=== PATIENT | male | born 1955 | race Caucasian/White ===

== ENCOUNTER 2016-11-06 05:22 | Inpatient (IN) | payer OTHER ==
[~2016-11-06] VITALS: Ht 177.8 cm; Wt 90.9 kg
[2016-11-06] MEDS ORDERED: CHOL400C PO (05:59)
[2016-11-06] MEDS ORDERED: CETI-237 PO (05:59)
[2016-11-06] MEDS ORDERED: ESOM20CA31 PO (05:59)
[2016-11-06 06:08] VITALS: BP 108/70
[2016-11-06] MEDS ORDERED: MORPHINE SULFATE 4 MG/ML, 1ML ONE (06:17)
[2016-11-06] MEDS ORDERED: ONDANSETRON 2MG/ML, 2ML IVPush PRN ×3 (06:30→18:00)
[2016-11-06] MEDS ORDERED: MORPHINE SULFATE 4 MG/ML, 1ML IVPush PRN (06:30)
[2016-11-06 07:50] VITALS: BP 110/71
[2016-11-06] MEDS ORDERED: morphine SULFATE 10 MG/ML, 1ML IVPush ONE (08:00)
[2016-11-06] MEDS ORDERED: SODIUM CHLORIDE FLUSH 10ML SYR IVF SCH (09:00)
[2016-11-06] MEDS ORDERED: MIDAZOLAM 1 MG/ML, 2ML ONE (10:56)
[2016-11-06] MEDS ORDERED: FENTANYL PF 100 MCG/2ML ONE (10:56)
[2016-11-06] MEDS ORDERED: BUPIVACAINE LIPOSOME/PF INFIL ONE (11:28)
[2016-11-06] MEDS ORDERED: FENTANYL PF 100 MCG/2ML IV PRN (11:30)
[2016-11-06] MEDS ORDERED: hydrALAzine 20 MG/ML, 1ML IV PRN (11:30)
[2016-11-06] MEDS ORDERED: LABETALOL 5MG/ML, 20ML IV PRN (11:30)
[2016-11-06] MEDS ORDERED: ACETAMINOPHEN 325 MG TABLET PO PRN (11:30)
[2016-11-06] MEDS ORDERED: PROMETHAZINE 25 MG/ML, 1ML IV PRN (11:30)
[2016-11-06] MEDS ORDERED: METOCLOPRAMIDE 5 MG/ML, 2ML IV PRN (11:30)
[2016-11-06] MEDS ORDERED: OXYcodone 5 MG/5 ML ORAL.SOL UDC PO PRN ×2 (11:30→14:00)
[2016-11-06] MEDS ORDERED: MEPERIDINE/PF 25MG/0.5ML IVPush PRN (11:30)
[2016-11-06] MEDS ORDERED: ROCURONIUM 10 MG/ML ONE (11:49)
[2016-11-06] MEDS ORDERED: PROPOFOL 10 MG/ML, 20ML ONE (11:49)
[2016-11-06] MEDS ORDERED: CEFOTETAN 2 GM ONE (11:49)
[2016-11-06] MEDS ORDERED: SUCCINYLCHOLINE 20 MG/ML, 10ML ONE (11:49)
[2016-11-06] MEDS ORDERED: ACETAMINOPHEN 325 MG TABLET ONE (12:35)
[2016-11-06] MEDS ORDERED: HYDROmorphone 2 MG/ML, 1ML ONE (12:35)
[2016-11-06] MEDS ORDERED: MEPERIDINE/PF 25MG/0.5ML ONE (12:35)
[2016-11-06] MEDS ORDERED: OXYcodone 5 MG/5 ML ORAL.SOL UDC ONE (12:36)
[2016-11-06] MEDS: HYDROmorphone 1 MG/ML, 1ML IV PRN ×4 (12:44→13:13)
[2016-11-06] MEDS ORDERED: ONDANSETRON 2MG/ML, 2ML IV PRN (14:00)
[2016-11-06] MEDS ORDERED: LORazepam 2 MG/ML, 1ML IV PRN (14:00)
[2016-11-06] MEDS ORDERED: CETIRIZINE 10 MG TABLET PO PRN (14:00)
[2016-11-06] MEDS ORDERED: LORazepam 1MG TABLET PO PRN (14:00)
[2016-11-06] MEDS ORDERED: ONDANSETRON 2MG/ML, 2ML ONE (17:44)
[2016-11-06 17:51] VITALS: BP 114/60
[2016-11-06 19:22] VITALS: BP 117/63
[2016-11-06] MEDS ORDERED: OXYC-302 PO (19:45)
[2016-11-06] MEDS ORDERED: CIPR500T87 PO (19:46)
[2016-11-06] MEDS ORDERED: METR500T PO (19:47)
[2016-11-07] MEDS ORDERED: PANTOPROZOLE 40MG TABLET PO SCH (07:30)
[2016-11-07] MEDS ORDERED: CHOLECALCIFEROL 400 UNITS TABLET PO SCH (09:00)
== END 2016-11-06 20:54 | disposition home or self-care (01) | DRG 395 ==
LOC: 4NOR 05:45
PROVIDERS: ADMIT Surgery; ATTEND Surgery
PROC: 0D9P30Z Drainage of Rectum with Drainage Device, Percutaneous Approach (ICD-10-PCS; principal; 2016-11-06 10:45)
DX: K61.2 Anorectal abscess (principal); Z79.899 Other long term (current) drug therapy; C44.90 Unspecified malignant neoplasm of skin, unspecified
CPT/HCPCS: 87015; 87070; 87075; 87077; 87102; 87116; 87205; 87206; C9290; J1170; J2175; J2250; J2704; J3010; J0330; J2270; S0074

== ENCOUNTER 2018-09-10 08:55 | Emergency (ER) | payer OTHER ==
[~2018-09-10] VITALS: Ht 177.8 cm; Wt 89.0 kg
[~2018-09-10 08:55] MED LIST: CETI-237 PO; CHOL400C PO; CIPR500T87 PO; ESOM20CA31 PO; METR500T PO; OXYC-302 PO
--- NOTE | 2018-09-10 09:16 | NUR ---
UP DOING CHORES AND SUDDEN ONSET DIZZINESS, OFF BALANCE, LEGS HEAVY. MD AT BEDSIDE EXAMINING PT
[2018-09-10] MEDS ORDERED: MECLIZINE CHEWABLE 25 MG TAB PO ONE (09:30)
[2018-09-10] MEDS ORDERED: MECLIZINE CHEWABLE 25 MG TAB ONE (09:34)
[2018-09-10 10:13] LABS: BASOPHILS # (AUTO) 0.03 x10^3/uL (0-0.1); BASOPHILS % (AUTO) 0 % (0-1); EOSINOPHILS # (AUTO) 0.06 x10^3/uL (0-0.4); EOSINOPHILS % (AUTO) 1 % (1-7); LYMPHOCYTES # (AUTO) 0.88 x10^3/uL (1-3.4); LYMPHOCYTES % (AUTO) 12 % (22-44); MD NO; MEAN CORPUSCULAR HEMOGLOBIN 31.9 pg (27.5-34.5); MEAN CORPUSCULAR HGB CONC 35.1 g/dL (33.2-36.2); MEAN CORPUSCULAR VOLUME 90.9 fL (81-97); MEAN PLATELET VOLUME 7.2 fL (7.4-10.4); MONOCYTES # (AUTO) 0.44 x10^3/uL (0.2-0.8); MONOCYTES % (AUTO) 6 % (2-9); NEUTROPHILS # (AUTO) 5.92 x10^3/uL (1.8-6.8); NEUTROPHILS % (AUTO) 81 % (42-75); PLATELET COUNT 159 x10^3/uL (130-400); RED CELL DISTRIBUTION WIDTH 12.5 % (9.4-14.8)
[2018-09-10 10:20] LABS: ALANINE AMINOTRANSFERASE 28 U/L (12-78); ALBUMIN 3.7 g/dL (3.4-5.0); ANION GAP 4 mmol/L (5-15); CALCIUM 8.5 mg/dL (8.5-10.1); CHLORIDE 113 mmol/L (98-107); CREATININE 1.17 mg/dL (0.7-1.3)
[2018-09-10 10:30] LABS: ALKALINE PHOSPHATASE 63 U/L (45-117); BILIRUBIN,TOTAL 0.8 mg/dL (0.2-1.0); TOTAL PROTEIN 6.8 g/dL (6.4-8.2)
[2018-09-10 11:01] VITALS: BP 118/70
--- NOTE | 2018-09-10 11:01 | NUR ---
AWAITING DISPO. CONTINUE TO MONITOR
--- NOTE | 2018-09-10 11:36 | NUR ---
STANDING AT SIDE OF BED WHILE MD RE-EVALUATING PT
== END 2018-09-10 12:14 | disposition home or self-care (01) ==
LOC: ED 09:16
DX: H81.399 Other peripheral vertigo, unspecified ear (principal); H81.10 Benign paroxysmal vertigo, unspecified ear; K21.9 Gastro-esophageal reflux disease without esophagitis
CPT/HCPCS: 36415; 80053; 84443; 85025; 93005; 99284

== ENCOUNTER 2018-12-31 12:26 | Observation (INO) | payer OTHER ==
[~2018-12-31] VITALS: Ht 177.8 cm; Wt 91.4 kg
--- NOTE | 2018-12-31 12:39 | NUR ---
CUSTOMER FACILITIES SUPERVISOR: PT TO ROOM FROM TRIAGE VIA W/C
[2018-12-31 12:50] LABS: BASOPHILS # (AUTO) 0.02 x10^3/uL (0-0.1); BASOPHILS % (AUTO) 0 % (0-1); EOSINOPHILS # (AUTO) 0.09 x10^3/uL (0-0.4); EOSINOPHILS % (AUTO) 1 % (1-7); LYMPHOCYTES # (AUTO) 1.36 x10^3/uL (1-3.4); LYMPHOCYTES % (AUTO) 21 % (22-44); MD NO; MEAN CORPUSCULAR HEMOGLOBIN 31.6 pg (27.5-34.5); MEAN CORPUSCULAR HGB CONC 34.2 g/dL (33.2-36.2); MEAN CORPUSCULAR VOLUME 92.5 fL (81-97); MEAN PLATELET VOLUME 6.9 fL (7.4-10.4); MONOCYTES # (AUTO) 0.49 x10^3/uL (0.2-0.8); MONOCYTES % (AUTO) 8 % (2-9); NEUTROPHILS # (AUTO) 4.42 x10^3/uL (1.8-6.8); NEUTROPHILS % (AUTO) 69 % (42-75); PLATELET COUNT 162 x10^3/uL (130-400); RED BLOOD COUNT 5.27 x10^6/uL (4.38-5.82); RED CELL DISTRIBUTION WIDTH 13.5 % (9.4-14.8)
--- NOTE | 2018-12-31 12:51 | NUR ---
PT A&OX4, RESP EVEN & UNLABORED, SPEECH CLEAR, SKIN WNL. CURRENTLY PAIN FREE. SPOUSE & DAUGHTER IN ROOM. EXPERIENCED SOB & CHEST TIGHTNESS THAT HAS INCREASED OVER THIS PAST WEEK. NO PAIN MEDS TAKEN. DENIES CARDIAC HX, RECENT URI, VOMITING. C/O NAUSEA - DRY HEAVES FOR A FEW WEEKS, DIARRHEA TODAY - MULTIPLE SOFT STOOLS TODAY. WAS IN [place] IN SEPT[place]. HAS NOT TAKEN ANTIBIOTICS RECENTLY.
[2018-12-31] MEDS ORDERED: LANS30CA PO (12:57)
[2018-12-31] MEDS ORDERED: MULTIVITAMIN (12:57)
[2018-12-31] MEDS ORDERED: ASPIRIN 81 MG TABLET CHEW PO ONE (13:00)
[2018-12-31] MEDS ORDERED: SODIUM CHLORIDE FLUSH 10ML SYR IVF ONE (13:00)
[2018-12-31 13:04] LABS: ALANINE AMINOTRANSFERASE 33 U/L (12-78); ALBUMIN 4.2 g/dL (3.4-5.0); ANION GAP 4 mmol/L (5-15); CALCIUM 9.2 mg/dL (8.5-10.1); CHLORIDE 108 mmol/L (98-107); CREATININE 1.31 mg/dL (0.7-1.3)
[2018-12-31 13:08] LABS: ALKALINE PHOSPHATASE 75 U/L (45-117); TOTAL PROTEIN 7.4 g/dL (6.4-8.2); TROPONIN I < 0.015 ng/mL (0.000-0.045)
[2018-12-31] MEDS ORDERED: ASPIRIN 81 MG TABLET CHEW ONE (13:08)
--- NOTE | 2018-12-31 13:21 | NUR ---
Pt sitting up in bed, joking with and daughter who are at the bedside. NAD noted at this time. Pt side rail up. Pt medicated per emar. MCCOLLUM at bedside for assessment.
--- NOTE | 2018-12-31 13:59 | NUR ---
IV LOCK INITIATED. PT RESTING COMFORTABLY ON BED, MONITORING CONTINUING.
--- NOTE | 2018-12-31 14:08 | NUR ---
TO CTA PER TIARA
[2018-12-31] MEDS ORDERED: OMNIPAQUE 350 MG/ML, 100ML BOTTLE ONE (14:26)
--- NOTE | 2018-12-31 14:37 | NUR ---
PT REPORT TO ERIBERTO DUVALL FOR ROOM 510-1
[2018-12-31 15:07] VITALS: BP 135/84
[2018-12-31] MEDS ORDERED: MULT-658 PO (15:29)
[2018-12-31] MEDS ORDERED: POLYETHYLENE GLYCOL 17 GM PACKET PO PRN (15:30)
[2018-12-31] MEDS ORDERED: ENALAPRILAT 1.25 MG/ML, 2ML IVPush PRN (15:30)
[2018-12-31] MEDS ORDERED: ONDANSETRON 2MG/ML, 2ML IVPush PRN (15:30)
[2018-12-31] MEDS ORDERED: CETIRIZINE 10 MG TABLET PO PRN (15:30)
[2018-12-31] MEDS ORDERED: ACETAMINOPHEN 325 MG TABLET PO PRN (15:30)
[2018-12-31] MEDS ORDERED: LABETALOL 5MG/ML, 20ML IVPush PRN (15:30)
[2018-12-31] MEDS ORDERED: ONDANSETRON ODT 4 MG PO PRN (15:30)
[2018-12-31] MEDS ORDERED: DOCUSATE 100 MG CAPSULE PO PRN (15:30)
[2018-12-31] MEDS ORDERED: BISACODYL 10 MG SUPP PR PRN (15:30)
[2018-12-31] MEDS: SODIUM CHLORIDE 0.9% 1,000 ML IV SCH (15:51)
[2018-12-31 16:08] LABS: TROPONIN I < 0.015 ng/mL (0.000-0.045)
[2018-12-31 19:17] VITALS: BP 122/73
[2018-12-31 21:30] LABS: TROPONIN I < 0.015 ng/mL (0.000-0.045)
[2019-01-01 01:11] VITALS: BP 128/67
[2019-01-01] MEDS: SODIUM CHLORIDE 0.9% 1,000 ML IV SCH (05:13)
[2019-01-01 05:34] LABS: BASOPHILS # (AUTO) 0.02 x10^3/uL (0-0.1); BASOPHILS % (AUTO) 0 % (0-1); EOSINOPHILS # (AUTO) 0.08 x10^3/uL (0-0.4); EOSINOPHILS % (AUTO) 2 % (1-7); LYMPHOCYTES # (AUTO) 1.37 x10^3/uL (1-3.4); LYMPHOCYTES % (AUTO) 26 % (22-44); MD NO; MEAN CORPUSCULAR HGB CONC 33.7 g/dL (33.2-36.2); MEAN CORPUSCULAR VOLUME 92.1 fL (81-97); MEAN PLATELET VOLUME 6.8 fL (7.4-10.4); MONOCYTES # (AUTO) 0.41 x10^3/uL (0.2-0.8); MONOCYTES % (AUTO) 8 % (2-9); NEUTROPHILS # (AUTO) 3.32 x10^3/uL (1.8-6.8); NEUTROPHILS % (AUTO) 64 % (42-75); PLATELET COUNT 132 x10^3/uL (130-400); RED BLOOD COUNT 4.88 x10^6/uL (4.38-5.82); RED CELL DISTRIBUTION WIDTH 13.4 % (9.4-14.8)
[2019-01-01 05:43] LABS: CHLORIDE 110 mmol/L (98-107)
[2019-01-01 06:00] LABS: ANION GAP 7 mmol/L (5-15); CALCIUM 8.3 mg/dL (8.5-10.1); CREATININE 1.11 mg/dL (0.7-1.3)
[2019-01-01] MEDS ORDERED: ASPIRIN 325 MG TABLET EC PO SCH (06:00)
[2019-01-01 07:44] VITALS: BP 116/70
[2019-01-01] MEDS ORDERED: MULTIVITAMIN 1 TABLET PO SCH (09:00)
[2019-01-01] MEDS ORDERED: PANTOPROZOLE 40MG TABLET PO SCH (09:00)
[2019-01-01 12:50] VITALS: BP 131/80
== END 2019-01-01 17:06 | disposition home or self-care (01) ==
LOC: ED 14:33 → 5SO 15:05 → ED 15:30 → 5SO 15:30 → INTOOBSV 15:30
PROVIDERS: ADMIT Internal Medicine; ATTEND Internal Medicine
DX: R07.89 Other chest pain (principal); R06.00 Dyspnea, unspecified; R19.7 Diarrhea, unspecified; Z85.828 Personal history of other malignant neoplasm of skin; Z79.899 Other long term (current) drug therapy
CPT/HCPCS: 36415; 71045; 71275; 78452; 80048; 80053; 83690; 83735; 83880; 84100; 84436; 84443; 84484; 85025; 93005; 93017; 93306; 99284; A9502; C9898; G0378; J7030; Q9967; 99285

== ENCOUNTER 2019-01-20 14:17 | Emergency (ER) | payer OTHER ==
[~2019-01-20] VITALS: Ht 177.8 cm; Wt 90.4 kg
[2019-01-20 16:37] VITALS: BP 148/74
== END 2019-01-20 16:39 | disposition home or self-care (01) ==
LOC: ED 16:07
DX: R06.00 Dyspnea, unspecified (principal); K21.9 Gastro-esophageal reflux disease without esophagitis
CPT/HCPCS: 36415; 71046; 80053; 84484; 85025; 93005; 99284

== ENCOUNTER 2019-01-30 09:29 | Outpatient (CLI) | payer OTHER ==
[~2019-01-30 09:29] MED LIST changes: +LANS30CA PO; +MULT-658 PO; +MULTIVITAMIN
== END 2019-01-30 23:59 | disposition home or self-care (01) ==
LOC: RAD 09:29
PROVIDERS: ATTEND Family Medicine
DX: K22.2 Esophageal obstruction (principal); K22.8 Other specified diseases of esophagus; K44.9 Diaphragmatic hernia without obstruction or gangrene; K21.9 Gastro-esophageal reflux disease without esophagitis; M81.8 Other osteoporosis without current pathological fracture; F41.9 Anxiety disorder, unspecified; R07.2 Precordial pain; R00.2 Palpitations; Z85.828 Personal history of other malignant neoplasm of skin
CPT/HCPCS: 74241

== ENCOUNTER → 2020-07-23 | Outpatient (CLI) | payer OTHER ==
[~2020-07-23] MED LIST changes: -OXYC-302 PO; +OXYC1TAB14 PO
== END | disposition home or self-care (01) ==
LOC: CFH 15:44
PROVIDERS: ATTEND Family Medicine
DX: I35.8 Other nonrheumatic aortic valve disorders (principal); R06.02 Shortness of breath
CPT/HCPCS: 93306

== ENCOUNTER 2020-08-26 08:55 | Emergency (ER) | payer OTHER ==
[~2020-08-26] VITALS: Ht 177.8 cm; Wt 92.2 kg
--- NOTE | 2020-08-26 09:26 | NUR ---
ERP AT BEDSIDE. PT STATES S/S HE WAS EXPERIENCING EARLIER HAVE PASSED.
[2020-08-26 09:48] VITALS: BP 145/79
--- NOTE | 2020-08-26 10:02 | NUR ---
lab at bedside
[2020-08-26 10:17] LABS: BASOPHILS % (AUTO) 0 % (0-1); EOSINOPHILS % (AUTO) 1 % (1-7); LYMPHOCYTES % (AUTO) 15 % (22-44); MEAN CORPUSCULAR HGB CONC 34.6 g/dL (33.2-36.2); MEAN PLATELET VOLUME 6.8 fL (7.4-10.4); MONOCYTES % (AUTO) 9 % (2-9); NEUTROPHILS % (AUTO) 76 % (42-75); PLATELET COUNT 150 x10^3/uL (130-400); RED BLOOD COUNT 4.72 x10^6/uL (4.38-5.82); RED CELL DISTRIBUTION WIDTH 13.5 % (9.4-14.8)
[2020-08-26 10:18] LABS: MD NO
[2020-08-26 10:25] LABS: ALANINE AMINOTRANSFERASE 30 U/L (12-78); ALBUMIN 3.8 g/dL (3.4-5.0); ANION GAP 7 mmol/L (5-15); CALCIUM 8.9 mg/dL (8.5-10.1); CHLORIDE 108 mmol/L (98-107); CREATININE 1.06 mg/dL (0.7-1.3)
[2020-08-26 10:29] LABS: ALKALINE PHOSPHATASE 62 U/L (45-117); BILIRUBIN,TOTAL 0.6 mg/dL (0.2-1.0); TOTAL PROTEIN 6.5 g/dL (6.4-8.2); TROPONIN I < 0.015 ng/mL (0.000-0.045)
--- NOTE | 2020-08-26 10:42 | NUR ---
pt ambulates to bathroom with no complicaitons. denies dizziness
== END 2020-08-26 11:13 | disposition home or self-care (01) ==
LOC: ED 10:21
DX: R55 Syncope and collapse (principal); R00.2 Palpitations; R42 Dizziness and giddiness; K21.9 Gastro-esophageal reflux disease without esophagitis
CPT/HCPCS: 36415; 80053; 83735; 84484; 85025; 93005; 99284

== ENCOUNTER 2020-10-23 23:24 | Emergency (ER) | payer OTHER ==
[~2020-10-23] VITALS: Ht 177.8 cm; Wt 90.2 kg
[2020-10-24] MEDS ORDERED: OXYcodone/APAP 7.5/325MG TABLET ONE (00:23)
[2020-10-24 00:26] VITALS: BP 119/78
[2020-10-24] MEDS ORDERED: OXYcodone/APAP 7.5/325MG TABLET PO ONE (00:30)
[2020-10-24] MEDS ORDERED: LIDOCAINE-MPF 1%, 5ML INFIL ONE (01:00)
[2020-10-24] MEDS ORDERED: LIDOCAINE-MPF 1%, 5ML ONE (01:00)
--- NOTE | 2020-10-24 01:07 | NUR ---
ERP AT BEDSIDE FOR I&D
[2020-10-24] MEDS ORDERED: SULFAMETH./TRIMETHOPRIM DS 800MG/160MG TABLET ONE (01:49)
[2020-10-24] MEDS ORDERED: SULFAMETH./TRIMETHOPRIM DS 800MG/160MG TABLET PO ONE (02:00)
== END 2020-10-24 02:12 | disposition home or self-care (01) ==
LOC: ED 10-24 00:05
DX: K61.1 Rectal abscess (principal); K21.9 Gastro-esophageal reflux disease without esophagitis
CPT/HCPCS: 46040; 46050; 87070; 87077; 87147; 87205; 99284

== ENCOUNTER 2020-12-04 17:57 | Inpatient (IN) | payer OTHER ==
[~2020-12-04] VITALS: Ht 177.8 cm; Wt 91.7 kg
[2020-12-04 13:54] VITALS: BP 114/75
[2020-12-04] MEDS ORDERED: SODIUM CHLORIDE 0.9% 1,000 ML IV ONE (20:00)
[2020-12-04] MEDS ORDERED: ONDANSETRON 2MG/ML, 2ML IVPush ONE (20:00)
[2020-12-04] MEDS ORDERED: SODIUM CHLORIDE FLUSH 10ML SYR IVF ONE ×2 (20:00→23:00)
--- NOTE | 2020-12-04 20:09 | NUR ---
MRI destination coordinator, called [id number]. Tech en route. awaiting screening form
[2020-12-04] MEDS ORDERED: ONDANSETRON 2MG/ML, 2ML ONE (20:12)
[2020-12-04] MEDS ORDERED: MORPHINE SULFATE 4 MG/ML, 1ML ONE ×2 (20:12→21:30)
[2020-12-04] MEDS: MORPHINE SULFATE 4 MG/ML, 1ML IVPush PRN ×2 (20:21→21:36)
[2020-12-04] MEDS ORDERED: GADOTERATE 10 MMOL/20ML SYR ONE (20:41)
[2020-12-04 21:18] LABS: BASOPHILS % (AUTO) 0 % (0-1); EOSINOPHILS % (AUTO) 1 % (1-7); LYMPHOCYTES % (AUTO) 11 % (22-44); MEAN CORPUSCULAR HEMOGLOBIN 31.7 pg (27.5-34.5); MEAN PLATELET VOLUME 6.9 fL (7.4-10.4); MONOCYTES % (AUTO) 8 % (2-9); NEUTROPHILS % (AUTO) 80 % (42-75); PLATELET COUNT 149 x10^3/uL (130-400); RED BLOOD COUNT 4.74 x10^6/uL (4.38-5.82); RED CELL DISTRIBUTION WIDTH 14.5 % (9.4-14.8)
--- NOTE | 2020-12-04 21:27 | NUR ---
pt back from mri, rest of labs drawn
[2020-12-04 21:31] LABS: ALANINE AMINOTRANSFERASE 27 U/L (12-78); ALBUMIN 3.5 g/dL (3.4-5.0); ANION GAP 7 mmol/L (5-15); CALCIUM 9.4 mg/dL (8.5-10.1); CHLORIDE 104 mmol/L (98-107); CREATININE 1.09 mg/dL (0.7-1.3)
[2020-12-04 21:39] LABS: ALKALINE PHOSPHATASE 74 U/L (45-117); BILIRUBIN,TOTAL 0.6 mg/dL (0.2-1.0); TOTAL PROTEIN 7.3 g/dL (6.4-8.2)
[2020-12-04] MEDS ORDERED: PIPERACILLIN/TAZO 3.375 GM in DEXTROSE 5% 50 ML IVPB ONE (23:00)
[2020-12-04] MEDS ORDERED: VANCOMYCIN PER PHARMACY MC ONE (23:00)
--- NOTE | 2020-12-04 23:24 | NUR ---
ABX AFTER BLOOD CULTURES
[2020-12-04] MEDS ORDERED: VANCOMYCIN 1,800 MG in SODIUM CHLORIDE 0.9% 250 ML IV ONE (23:30)
[2020-12-04] MEDS ORDERED: POLYETHYLENE GLYCOL 17 GM PACKET PO PRN (23:30)
[2020-12-04] MEDS ORDERED: morphine SULFATE 10 MG/ML, 1ML IVPush PRN (23:30)
[2020-12-04] MEDS ORDERED: CETIRIZINE 10 MG TABLET PO PRN (23:30)
[2020-12-04] MEDS ORDERED: ONDANSETRON ODT 4 MG PO PRN (23:30)
[2020-12-04] MEDS ORDERED: BISACODYL 10 MG SUPP PR PRN (23:30)
[2020-12-04] MEDS ORDERED: VANCOMYCIN PER PHARMACY MC PRN (23:30)
[2020-12-04] MEDS ORDERED: ACETAMINOPHEN 325 MG TABLET PO PRN (23:30)
[2020-12-05 00:24] VITALS: BP 118/72
[2020-12-05] MEDS ORDERED: PHARMACOKINETIC MONITORING MC PRN (00:30)
[2020-12-05] MEDS ORDERED: ASPI-963 PO (00:44)
[2020-12-05] MEDS: SODIUM CHLORIDE FLUSH 10ML SYR IVF SCH ×3 (01:24→20:40)
[2020-12-05] MEDS: OXYcodone/APAP 5/325MG TABLET PO PRN ×4 (01:24→23:29)
[2020-12-05 05:12] LABS: BASOPHILS % (AUTO) 0 % (0-1); EOSINOPHILS % (AUTO) 1 % (1-7); LYMPHOCYTES % (AUTO) 13 % (22-44); MEAN CORPUSCULAR HEMOGLOBIN 31.9 pg (27.5-34.5); MEAN CORPUSCULAR HGB CONC 35.6 g/dL (33.2-36.2); MEAN PLATELET VOLUME 6.9 fL (7.4-10.4); MONOCYTES % (AUTO) 10 % (2-9); NEUTROPHILS % (AUTO) 76 % (42-75); PLATELET COUNT 134 x10^3/uL (130-400); RED BLOOD COUNT 4.34 x10^6/uL (4.38-5.82); RED CELL DISTRIBUTION WIDTH 14.7 % (9.4-14.8)
[2020-12-05] MEDS: PIPERACILLIN/TAZO 3.375 GM in DEXTROSE 5% 50 ML IV SCH ×4 (05:12→23:44)
[2020-12-05] MEDS: PANTOPRAZOLE 40MG TABLET PO SCH (05:13)
[2020-12-05 05:20] LABS: ANION GAP 5 mmol/L (5-15); CALCIUM 8.3 mg/dL (8.5-10.1); CHLORIDE 105 mmol/L (98-107); CREATININE 1.17 mg/dL (0.7-1.3)
[2020-12-05] MEDS: MULTIVITAMIN 1 TABLET PO SCH (07:19)
[2020-12-05] MEDS: SENNA/DOCUSATE TABLET PO SCH (07:19)
[2020-12-05 07:32] VITALS: BP 105/69
[2020-12-05] MEDS ORDERED: LIDOCAINE-MPF 1%, 5ML ONE (13:01)
[2020-12-05 13:35] VITALS: BP 114/75
[2020-12-05] MEDS: VANCOMYCIN 1,800 MG in SODIUM CHLORIDE 0.9% 250 ML IV SCH (15:30)
[2020-12-05] MEDS: ENOXAPARIN 40 MG/0.4 ML SQ SCH (16:59)
[2020-12-05 19:08] VITALS: BP 105/68
[2020-12-06 00:03] VITALS: BP 106/63
[2020-12-06] MEDS: PANTOPRAZOLE 40MG TABLET PO SCH (05:45)
[2020-12-06] MEDS: PIPERACILLIN/TAZO 3.375 GM in DEXTROSE 5% 50 ML IV SCH ×2 (05:45→12:15)
[2020-12-06 05:55] LABS: BASOPHILS % (AUTO) 1 % (0-1); EOSINOPHILS % (AUTO) 1 % (1-7); LYMPHOCYTES % (AUTO) 14 % (22-44); MEAN CORPUSCULAR HEMOGLOBIN 31.7 pg (27.5-34.5); MEAN CORPUSCULAR HGB CONC 35.2 g/dL (33.2-36.2); MEAN PLATELET VOLUME 6.5 fL (7.4-10.4); MONOCYTES % (AUTO) 10 % (2-9); NEUTROPHILS % (AUTO) 75 % (42-75); PLATELET COUNT 146 x10^3/uL (130-400); RED BLOOD COUNT 4.62 x10^6/uL (4.38-5.82); RED CELL DISTRIBUTION WIDTH 14.3 % (9.4-14.8)
[2020-12-06 06:53] VITALS: BP 114/75
[2020-12-06] MEDS: MULTIVITAMIN 1 TABLET PO SCH (07:47)
[2020-12-06] MEDS: OXYcodone/APAP 5/325MG TABLET PO PRN (07:47)
[2020-12-06] MEDS: ASPIRIN 81 MG TABLET CHEW PO SCH (07:47)
[2020-12-06] MEDS: SENNA/DOCUSATE TABLET PO SCH (07:48)
[2020-12-06] MEDS: SODIUM CHLORIDE FLUSH 10ML SYR IVF SCH ×2 (07:48→21:11)
[2020-12-06] MEDS: VANCOMYCIN 1,800 MG in SODIUM CHLORIDE 0.9% 250 ML IV SCH (10:16)
[2020-12-06 12:51] VITALS: BP 99/65
[2020-12-06] MEDS: ENOXAPARIN 40 MG/0.4 ML SQ SCH (16:23)
[2020-12-06 19:51] VITALS: BP 115/73
[2020-12-07 00:14] VITALS: BP 110/60
[2020-12-07] MEDS: VANCOMYCIN 1,800 MG in SODIUM CHLORIDE 0.9% 250 ML IV SCH (03:17)
[2020-12-07] MEDS: OXYcodone/APAP 5/325MG TABLET PO PRN (04:02)
[2020-12-07] MEDS: PANTOPRAZOLE 40MG TABLET PO SCH (05:16)
[2020-12-07 05:56] LABS: BASOPHILS % (AUTO) 0 % (0-1); EOSINOPHILS % (AUTO) 1 % (1-7); LYMPHOCYTES % (AUTO) 18 % (22-44); MEAN CORPUSCULAR HEMOGLOBIN 30.9 pg (27.5-34.5); MEAN CORPUSCULAR HGB CONC 34.4 g/dL (33.2-36.2); MEAN PLATELET VOLUME 6.7 fL (7.4-10.4); MONOCYTES % (AUTO) 11 % (2-9); NEUTROPHILS % (AUTO) 70 % (42-75); PLATELET COUNT 159 x10^3/uL (130-400); RED BLOOD COUNT 4.53 x10^6/uL (4.38-5.82); RED CELL DISTRIBUTION WIDTH 14.4 % (9.4-14.8)
[2020-12-07 05:58] LABS: ANION GAP 8 mmol/L (5-15); CALCIUM 9.1 mg/dL (8.5-10.1); CHLORIDE 108 mmol/L (98-107); CREATININE 1.01 mg/dL (0.7-1.3)
[2020-12-07 08:00] VITALS: BP 108/69
[2020-12-07] MEDS: SODIUM CHLORIDE FLUSH 10ML SYR IVF SCH (09:00)
[2020-12-07] MEDS: ASPIRIN 81 MG TABLET CHEW PO SCH (09:14)
[2020-12-07] MEDS: MULTIVITAMIN 1 TABLET PO SCH (09:14)
[2020-12-07] MEDS: SENNA/DOCUSATE TABLET PO SCH (09:14)
[2020-12-07] MEDS ORDERED: CEPHALEXIN 500 MG CAPSULE PO SCH (09:30)
[2020-12-07] MEDS ORDERED: AMOX1TAB12 PO (10:14)
[2020-12-07] MEDS ORDERED: AMOXICILLIN/CLAV 875-125MG TABLET PO SCH (10:30)
== END 2020-12-07 11:25 | disposition home or self-care (01) | DRG 603 ==
LOC: ED 22:02 → EDIP 23:23 → 3N 12-05 00:11
PROVIDERS: ADMIT Family Medicine; ATTEND Family Medicine
PROC: 0J973ZZ Drainage of Back Subcutaneous Tissue and Fascia, Percutaneous Approach (ICD-10-PCS; principal; 2020-12-05)
DX: L03.312 Cellulitis of back [any part except buttock and flank] (principal); L02.212 Cutaneous abscess of back [any part, except buttock and flank]; B95.61 Methicillin susceptible Staphylococcus aureus infection as the cause of diseases classified elsewhere; I49.3 Ventricular premature depolarization; M19.90 Unspecified osteoarthritis, unspecified site; M51.26 Other intervertebral disc displacement, lumbar region; Z20.822 Contact with and (suspected) exposure to COVID-19; Z79.82 Long term (current) use of aspirin; Z82.3 Family history of stroke; Z85.828 Personal history of other malignant neoplasm of skin; Z86.73 Personal history of transient ischemic attack (TIA), and cerebral infarction without residual deficits; K21.9 Gastro-esophageal reflux disease without esophagitis
CPT/HCPCS: 10030; 36415; 72158; 76942; 80048; 80053; 83605; 84145; 85025; 85651; 86140; 87040; 87070; 87075; 87077; 87186; 87205; 87635; 96374; 96375; 96376; 99285; G0378; J1650; J2405; J2543; J3370; Q0162; A9575; J2270; J7030; J7050

== ENCOUNTER 2020-12-14 23:48 | Emergency (ER) | payer OTHER ==
[~2020-12-14] VITALS: Ht 177.8 cm; Wt 88.5 kg
[~2020-12-14 23:48] MED LIST changes: +AMOX1TAB12 PO; +ASPI-963 PO
--- NOTE | 2020-12-15 | NUR ---
PT AMBULATED STEADILY TO ROOM FROM TRIAGE. NAD NOTED
--- NOTE | 2020-12-15 00:27 | NUR ---
FIRST CONTACT W PATIENT. PT SITTING UP IN JASON MENJIVAR NOTED. PT REPORTS ADMITTED TO [facility] FOR PERISPINAL ABSCESS, DC'D LAST THURSDAY 12/07 AFTER SURGICAL I&D AND ABX. DC'D ON AUGMENTIN AND WAS TOLD TO RETURN TO ED W WORSENING S/S. PT REPORTS TODAY THERE WAS AN INCREASE IN PAIN AND DRAINAGE TRIGGERING HIS ED VISIT. DENIES NAUSEA/VOMITING/SADDLE PARESTHESIA/FEVER. BP/SPO2 MONITORING IN PLACE. IV ESTABLISHED, LABS AND BC X1 DRAWN.
[2020-12-15] MEDS ORDERED: KETOROLAC 30 MG/1 ML IVPush ONE (00:30)
[2020-12-15] MEDS ORDERED: SODIUM CHLORIDE FLUSH 10ML SYR IVF ONE (00:30)
[2020-12-15] MEDS ORDERED: OXYcodone/APAP 5/325MG TABLET PO ONE ×2 (00:30→05:30)
[2020-12-15] MEDS ORDERED: KETOROLAC 30 MG/1 ML ONE (00:39)
[2020-12-15] MEDS ORDERED: OXYcodone/APAP 5/325MG TABLET ONE ×2 (00:40→05:05)
[2020-12-15 00:49] LABS: BASOPHILS % (AUTO) 0 % (0-1); EOSINOPHILS % (AUTO) 1 % (1-7); LYMPHOCYTES % (AUTO) 22 % (22-44); MEAN CORPUSCULAR HEMOGLOBIN 31.4 pg (27.5-34.5); MEAN CORPUSCULAR HGB CONC 35.2 g/dL (33.2-36.2); MEAN PLATELET VOLUME 6.6 fL (7.4-10.4); MONOCYTES % (AUTO) 7 % (2-9); NEUTROPHILS % (AUTO) 70 % (42-75); PLATELET COUNT 252 x10^3/uL (130-400); RED BLOOD COUNT 4.67 x10^6/uL (4.38-5.82); RED CELL DISTRIBUTION WIDTH 14.3 % (9.4-14.8)
--- NOTE | 2020-12-15 01:00 | NUR ---
PT RESTING IN GURNEY W EYES CLOSED. EVEN/REGULAR RESPIRATIONS NOTED. VSS. AWAITING CT
[2020-12-15 01:01] LABS: ALBUMIN 3.6 g/dL (3.4-5.0); ANION GAP 7 mmol/L (5-15); CALCIUM 8.4 mg/dL (8.5-10.1); CHLORIDE 107 mmol/L (98-107); CREATININE 1.14 mg/dL (0.7-1.3)
[2020-12-15] MEDS ORDERED: OMNIPAQUE 350 MG/ML, 100ML BOTTLE ONE (01:50)
--- NOTE | 2020-12-15 03:19 | NUR ---
RECEIVED REPORT FROM ERIBERTO SUAREZ, PT UP TO BATHROOM WITH STEADY GAIT. PT RESTING COMFORTABLY IN BED, DENIES NEEDS AT THIS TIME.
--- NOTE | 2020-12-15 03:22 | NUR ---
REPORT TO ERIBERTO MORENO
[2020-12-15] MEDS ORDERED: PROPOFOL 10 MG/ML, 20ML ONE ×2 (03:27→03:39)
[2020-12-15] MEDS ORDERED: LIDOCAINE-MPF 1%, 5ML ONE (03:27)
[2020-12-15] MEDS ORDERED: CLINDAMYCIN PMX 600MG/50ML 50 ML ONE (03:27)
[2020-12-15] MEDS ORDERED: LIDOCAINE 1%, 10ML INFIL ONE (03:30)
[2020-12-15] MEDS ORDERED: CLINDAMYCIN PMX 600MG/50ML 50 ML IV ONE (03:30)
[2020-12-15] MEDS ORDERED: PROPOFOL 10 MG/ML, 20ML IVPush ONE (03:30)
--- NOTE | 2020-12-15 04:10 | NUR ---
PROCEDURAL SEDATION SET UP WITH SUCTION, 1 L OF NS RUNNING, AND CONTINUOUS MONITORING. PT SIGNED CONSENT. PT RESTING COMFORTABLY ON GURNEY
--- NOTE | 2020-12-15 04:24 | NUR ---
I&D PROCEDURE STARTED, SEE PROCEDURAL PACKET
[2020-12-15] MEDS ORDERED: morphine SULFATE 10 MG/ML, 1ML ONE (05:05)
--- NOTE | 2020-12-15 05:20 | NUR ---
PT FULLY A&OX4, PT REQUESTING PAIN MEDICATIONS, MEDICATION GIVEN. PT RESTING COMFORTABLY ON GURNEY, DENIES NEEDS AT THIS TIME.
[2020-12-15] MEDS ORDERED: morphine SULFATE 10 MG/ML, 1ML IVPush ONE (05:30)
--- NOTE | 2020-12-15 06:40 | NUR ---
Patient given discharge instructions and they have confirmed that they understand the instructions. Patient ambulatory with steady gait.
[2020-12-15 07:00] VITALS: BP 108/60
== END 2020-12-15 07:04 | disposition home or self-care (01) ==
LOC: ED 12-15 05:33
DX: L02.212 Cutaneous abscess of back [any part, except buttock and flank] (principal); L03.312 Cellulitis of back [any part except buttock and flank]
CPT/HCPCS: 10060; 36415; 72132; 80048; 82040; 85025; 87040; 87070; 87077; 87186; 87205; 96365; 96375; 99152; 99285; J1885; J2270; Q9967

== ENCOUNTER 2020-12-17 07:28 | Emergency (ER) | payer OTHER ==
[~2020-12-17] VITALS: Ht 177.8 cm; Wt 88.1 kg
--- NOTE | 2020-12-17 07:52 | NUR ---
Lower back wound check to remove packing. Taking abx as prescribed. pt to room with steady gait. postioned to comfort. attached to monitors. nadn. vss. Alfonso AGUILAR at bedside for redressing and repacking.
[2020-12-17 08:14] VITALS: BP 134/78
--- NOTE | 2020-12-17 08:15 | NUR ---
Patient given discharge instructions and they have confirmed that they understand the instructions. Patient ambulatory with steady gait. NAD, all questions answered appropriately, denies additional needs at this time. No personal belongings left in room after discharge.
== END 2020-12-17 08:16 | disposition home or self-care (01) ==
LOC: ED 07:48
DX: L02.212 Cutaneous abscess of back [any part, except buttock and flank] (principal); K21.9 Gastro-esophageal reflux disease without esophagitis
CPT/HCPCS: 99281

== ENCOUNTER 2020-12-24 07:58 | Outpatient (CLI) | payer OTHER | END 2020-12-24 23:59 | disposition home or self-care (01) | LOC: WOUND 07:58 | PROVIDERS: ATTEND Internal Medicine Infectious Disease | DX: T81.89XA Other complications of procedures, not elsewhere classified, initial encounter (principal); L02.212 Cutaneous abscess of back [any part, except buttock and flank]; K21.9 Gastro-esophageal reflux disease without esophagitis; M19.90 Unspecified osteoarthritis, unspecified site; Z79.82 Long term (current) use of aspirin; Z96.651 Presence of right artificial knee joint; Z86.73 Personal history of transient ischemic attack (TIA), and cerebral infarction without residual deficits; Z20.822 Contact with and (suspected) exposure to COVID-19; Z85.828 Personal history of other malignant neoplasm of skin; Y92.238 Other place in hospital as the place of occurrence of the external cause; Y83.8 Other surgical procedures as the cause of abnormal reaction of the patient, or of later complication, without mention of misadventure at the time of the procedure | CPT/HCPCS: 99215 ==

== ENCOUNTER → 2020-12-31 | Outpatient (CLI) | payer OTHER | END | disposition home or self-care (01) | LOC: WOUND 07:57 | PROVIDERS: ATTEND Nurse Practitioner Family | DX: T81.89XD Other complications of procedures, not elsewhere classified, subsequent encounter (principal); L02.212 Cutaneous abscess of back [any part, except buttock and flank]; K21.9 Gastro-esophageal reflux disease without esophagitis; M19.90 Unspecified osteoarthritis, unspecified site; Z79.82 Long term (current) use of aspirin; Z96.651 Presence of right artificial knee joint; Z86.73 Personal history of transient ischemic attack (TIA), and cerebral infarction without residual deficits; Z20.822 Contact with and (suspected) exposure to COVID-19; Z85.828 Personal history of other malignant neoplasm of skin; Y83.8 Other surgical procedures as the cause of abnormal reaction of the patient, or of later complication, without mention of misadventure at the time of the procedure | CPT/HCPCS: 99214 ==

== ENCOUNTER → 2021-01-07 | Outpatient (CLI) | payer OTHER | END | disposition home or self-care (01) | LOC: WOUND 07:54 | PROVIDERS: ATTEND Nurse Practitioner Family | DX: T81.89XD Other complications of procedures, not elsewhere classified, subsequent encounter (principal); L02.212 Cutaneous abscess of back [any part, except buttock and flank]; K21.9 Gastro-esophageal reflux disease without esophagitis; M19.90 Unspecified osteoarthritis, unspecified site; Z79.82 Long term (current) use of aspirin; Z96.651 Presence of right artificial knee joint; Z86.73 Personal history of transient ischemic attack (TIA), and cerebral infarction without residual deficits; Z20.822 Contact with and (suspected) exposure to COVID-19; Z85.828 Personal history of other malignant neoplasm of skin; Y83.8 Other surgical procedures as the cause of abnormal reaction of the patient, or of later complication, without mention of misadventure at the time of the procedure | CPT/HCPCS: 99213 ==

== ENCOUNTER → 2021-01-14 | Outpatient (CLI) | payer OTHER | END | disposition home or self-care (01) | LOC: WOUND 07:54 | PROVIDERS: ATTEND Nurse Practitioner Family | DX: L02.212 Cutaneous abscess of back [any part, except buttock and flank] (principal); K21.9 Gastro-esophageal reflux disease without esophagitis; M19.90 Unspecified osteoarthritis, unspecified site; Z79.82 Long term (current) use of aspirin; Z96.651 Presence of right artificial knee joint; Z86.73 Personal history of transient ischemic attack (TIA), and cerebral infarction without residual deficits; Z20.822 Contact with and (suspected) exposure to COVID-19; Z85.828 Personal history of other malignant neoplasm of skin | CPT/HCPCS: 99213 ==